=== PATIENT | male | born 1950 | race African-American/Black ===

== ENCOUNTER 2017-04-16 09:24 | Outpatient (CLI) | payer OTHER ==
--- NOTE | 2017-04-16 11:56 | DIAGNOSTIC IMAGING REPORT ---
PROCEDURE: CT ABDOMEN/PELVIS W/O CONTRAST INDICATION: HEMATURIA TECHNIQUE: Axial CT images were obtained through the abdomen and pelvis without IV contrast. Coronal and sagittal reformations were created. COMPARISON: None. FINDINGS: Clear lung bases. Pacemaker present in a normal size heart. No hiatal hernia. Deformities of healed, prior left seventh and eighth lateral rib fractures. There is a nonobstructing 4 mm calcification in the upper pole of the left kidney. A punctate calcification too small to measure is also present in the upper pole of the left kidney. No ureteral calcifications. No hydronephrosis or hydroureter. The unenhanced appearance of the renal parenchyma is normal bilaterally. There is a medium and small vessel calcific atherosclerosis. Mild abdominal aortic atherosclerosis. The unenhanced appearance of the liver, gallbladder, adrenal glands, pancreas and spleen is normal. There are no suspicious calcifications, retroperitoneal adenopathy or masses. The stomach, upper bowel loops, and mesentery appears normal. Intact anterior abdominal wall. No free fluid, or inflammation. Heavy medial and small vessel calcification throughout the pelvis. Partially filled urinary bladder demonstrates slight bladder wall thickening diffusely. No calcifications or focal mass. Minimally enlarged prostate gland measuring about 4.4 cm in transverse diameter. Pelvic small and large bowel loops are normal. Normal appendix. No suspicious calcifications, free fluid, or mass. Mild S-shaped scoliosis of the thoracolumbar spine with slight endplate degeneration. Moderate bilateral hip joint osteoarthritis. IMPRESSION: 1. 4 mm, nonobstructing left upper pole intrarenal calculus. 2. A punctate, nonobstructing left upper pole intrarenal calcification may be atherosclerotic. 3. Mild diffuse urinary bladder wall thickening, most likely secondary to incomplete bladder distention, less likely cystitis. Clinical correlation recommended. If there is ongoing hematuria, ultrasound or cystoscopy may be useful. 4. Unenhanced appearance of the kidneys and urinary collecting system is otherwise normal. 5. Heavy medial and small vessel calcific atherosclerosis, particularly in the pelvis, likely secondary to diabetes. All CT scans at this facility use dose modulation, iterative reconstruction, and/or weight-based dosing when appropriate to reduce radiation dose to as low as reasonably achievable.
== END 2017-04-16 23:00 ==
LOC: CT SRH 09:24
DX: R31.9 Hematuria, unspecified (principal); N20.0 Calculus of kidney